=== PATIENT | female | born 1975 | race Caucasian/White ===

== ENCOUNTER 2017-03-02 12:34 | Outpatient (CLI) | payer BC ==
[2017-03-02 13:11] LABS: Anion Gap 14 mmol/L (10-20); BUN (Urea Nitrogen) 14 mg/dL (7.0-18.7); Calc. Creatinine Clearance 0 mL/min (70-130); Calcium 9.6 mg/dL (7.8-10.44); Carbon Dioxide 24 mmol/L (22-29); Chloride 105 mmol/L (98-107); Estimated GFR-MDRD 79; Glucose 84 mg/dL (70-105); Potassium 4.6 mmol/L (3.5-5.1); Sodium 138 mmol/L (136-145); Uric Acid 4.9 mg/dL (2.6-6.0)
[2017-03-02 13:36] LABS: Bilirubin Negative (Negative); Blood, Urine Negative (Negative); Clarity CLEAR (Clear); Glucose, Urine (Dipstick) Negative (Negative); Leukocyte Negative (Negative); Nitrite Negative (Negative); Protein, Urine (Dipstick) Negative (Neg-Trace); Specific Gravity, Urine 1.012 (1.002-1.036); Urobilinogen 0.2 mg/dL (0.2-1.0); pH, Urine 6.5 (5.0-9.0)
[2017-03-02 14:05] LABS: Bacteria/HPF None Seen HPF (None Seen); Hyaline Casts/LPF 0-3 HYALINE CAST LPF (0-3 Hyaline); Pathc Cast-AUWi Flag 0.13 (0-2.49); RBC/HPF 0-3 HPF (0-3); Squamous Epithelial None Seen HPF (0-3); WBC/HPF 0-3 HPF (0-3)
--- NOTE | 2017-03-02 14:53 | ULT ---
ULTRASOUND RETROPERITONEUM COMPLETE: (RENAL) HISTORY: 41 year old female with recurrent calculus of kidney. FINDINGS: The right kidney measures 10 x 5 x 5 cm. The left kidney measures 10 x 5.5 x 6 cm. Both kidneys hav e abnormally increased echogenicity of the renal medullary pyramids (which could easily obscure tiny renal calculi). Renal cortical echogenicity is normal. There is no hydronephrosis. Cursory images of the urinary bladder demonstrate no gross abnormality. Prevoid urinary bladder volume is 480 mL. IMPRESSION: 1. No hydronephrosis. 2. Abnormally increased renal medullary echogenicity. The differential diagnosis is long, and includ es nephrocalcinosis ( such as that due to hypercalcemia, renal tubular acidosis, and medullary sponge kidney), and various metabolic disorders. kia[] POS: MELLY
--- NOTE | 2017-03-02 14:56 | RAD ---
SUPINE ABDOMEN: HISTORY: Kidney stone. COMPARISON: Correlation is made to CT of August 2016 which revealed tiny calculi in the upper collecting structures of both kidneys. On the current study, bowel content obscures the renal outlines and small calcifications could be obs cured. There is a tiny calcific density overlying the right renal outline measuring approximately 2- 3 mm which could probably correspond to one of the calcifications seen in the lower pole collecting s tructures of the right kidney on the prior CT. Tiny calcifications in the left kidney at that time a re too small to be seen on plain film. IMPRESSION: 1. At least 1 small calcification overlying the right kidney probably represents a renal calculus. 2. An Intrauterine device overlies the mid pelvis. 3. Bowel gas pattern is unremarkable. POS: MELLY
== END 2017-03-02 12:35 | disposition home or self-care (01) ==
LOC: ULT 12:34
PROVIDERS: ATTEND Urology
DX: N20.0 Calculus of kidney (principal); Z97.5 Presence of (intrauterine) contraceptive device
CPT/HCPCS: 36415; 74018; 76770; 80048; 81001; 83970; 84550; 87086